=== PATIENT | female | born 1985 ===

== ENCOUNTER 2021-01-30 16:46 | Emergency (ER) | payer BC ==
--- NOTE | 2021-01-30 18:58 | EDM.PDOC ---
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, drove to the farm later this afternoon, when getting close to farm again felt "like my heart was going to flop," sob, trouble getting breath, lightheaded, did not stop driving, slowed down, felt like everything was going black but able to see other vehicles, felt better at farm altho not completely back to normal vss stable here, no sxs here has not been sleeping well, does have inc'd stress has had COVID vax x 2, 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 Denies: Wheezing, Pleuritic Chest Pain, Cough Cardiovascular: Reports: No Symptoms, Other (vague chest discomfort altho not actual CP) Endocrine: Reports: No Symptoms GI/Abdominal: Reports: No Symptoms. Denies: Nausea, Vomiting : Reports: No Symptoms Musculoskeletal: Reports: No Symptoms Skin: Reports: No Symptoms Neurological: Reports: No Symptoms Psychiatric: Reports: Anxiety Hematologic/Lymphatic: Reports: No Symptoms Immunologic: Reports: No Symptoms ED EXAM, GENERAL - Physical Exam Exam: See Below Exam Limited By: No Limitations General Appearance: Alert, WD/WN, No Apparent Distress, Other (mildly anxious, NAD, normal speech, good eye contact) Eye Exam: Bilateral Eye: EOMI, PERRL Ears: Normal External Exam, Hearing Grossly Normal Nose: Normal Inspection Throat/Mouth: Normal Inspection, Normal Lips, Normal Teeth, Normal Gums, Normal Oropharynx, Normal Voice, No Airway Compromise Head: Atraumatic, Normocephalic Neck: Normal Inspection, Supple, Non-Tender, Full Range of Motion. No: Lymphadenopathy (R), Lymphadenopathy (L) Respiratory/Chest: No Respiratory Distress, Lungs Clear, Normal Breath Sounds, Chest Non-Tender Cardiovascular: Regular Rate, Rhythm, No Edema, No Murmur GI/Abdominal: Normal Bowel Sounds, Soft, Non-Tender, No Organomegaly, No Distention Back Exam: Normal Inspection, Full Range of Motion. No: CVA Tenderness (R), CVA Tenderness (L) Extremities: Normal Inspection, Normal Range of Motion, Non-Tender, No Pedal Edema Neurological: Alert, Oriented, CN II-XII Intact, Normal Cognition, No Motor/Sensory Deficits Psychiatric: Normal Affect, Normal Mood Skin Exam: Warm, Dry, Intact, Normal Color, No Rash Lymphatic: No Adenopathy #1 Interpretation EKG Date: 01/30/21 Time: 19:07 Rhythm: NSR (completely normal, no acute findings) Course - Vital Signs Last Recorded V/S: Last Vital Signs Temp 36.8 C 01/30/21 16:47 Pulse 87 01/30/21 16:47 Resp 20 01/30/21 16:47 BP 118/70 01/30/21 16:47 Pulse Ox 98 01/30/21 16:47 - Orders/Labs/Meds Orders: Active Orders 24 hr Category Date Time Status EKG Documentation Completion [RC] ASDIRECTED Care 01/30/21 18:50 Ordered Chest 2V [CR] Stat Exams 01/30/21 18:49 Ordered EKG 12 Lead [EK] Routine Ther 01/30/21 18:49 Ordered Labs: Laboratory Tests 01/30/21 01/30/21 01/30/21 Range/Units 18:55 18:55 18:55 WBC 9.2 (3.0-10.3) x10-3/uL RBC 4.19 (3.60-5.20) x10(6)uL Hgb 12.9 (11.4-15.5) g/dL Hct 38.4 (34.2-48.2) % MCV 91.6 (76.7-100.5) fL MCH 30.8 (23.9-33.9) pg MCHC 33.6 (31.9-34.8) g/dL RDW 12.7 (12.3-16.5) % Plt Count 182 (151-488) x10(3)uL MPV 10.1 (7.1-12.4) fL Neut % (Auto) 76.1 (30.8-76.2) % Lymph % (Auto) 13.8 L (18.4-52.1) % [place] % (Auto) 7.2 (4.4-15.7) % Eos % (Auto) 2.3 (0.6-8.1) % Baso % (Auto) 0.6 (0.2-1.5) % Neut # (Auto) 7.0 H (1.5-6.3) x10-3/uL Lymph # (Auto) 1.3 (1.0-4.4) x10-3/uL [place] # (Auto) 0.7 (0.3-1.0) x10-3/uL Eos # (Auto) 0.2 (0.0-0.8) x10-3/uL Baso # (Auto) 0.1 (0.0-0.1) x10-3/uL D-Dimer, Quantitative 0.28 (0.0-0.59) mg/LFEU Sodium 143 (135-145) mmol/L Potassium 4.2 (3.5-5.3) mmol/L Chloride 107 (100-110) mmol/L Carbon Dioxide 27 (21-32) mmol/L BUN 19 H (7-18) mg/dL Creatinine 0.7 (0.55-1.02) mg/dL Est Cr Clr Drug Dosing TNP Estimated GFR (MDRD) > 60 (>60) BUN/Creatinine Ratio 27.1 H (9-20) Glucose 96 (80-116) mg/dL Calcium 8.8 (8.6-10.2) mg/dL Total Bilirubin 0.2 (0.1-1.3) mg/dL AST 12 (5-25) IU/L ALT 21 (12-36) U/L Alkaline Phosphatase 45 L (56-112) IU/L Troponin I (4.0-60.3) pg/mL C-Reactive Protein (0.5-0.9) mg/dL Total Protein 6.5 (6.0-8.0) g/dL Albumin 3.5 (3.5-5.2) g/dL Globulin 3.0 g/dL Albumin/Globulin Ratio 1.2 TSH, Ultra Sensitive (0.36-3.74) IU/mL Urine Color (YELLOW) Urine Appearance (CLEAR) Urine pH (5.0-6.5) Ur Specific [place] (1.010-1.025) Urine Protein (NEGATIVE) mg/dL Urine Glucose (UA) (NORMAL) mg/dL Urine Ketones (NEGATIVE) mg/dL Urine Occult Blood (NEGATIVE) Urine Nitrite (NEGATIVE) Urine Bilirubin (NEGATIVE) Urine Urobilinogen (NEGATIVE) mg/dL Ur Leukocyte Esterase (NEGATIVE) Urine RBC (0-5) Urine WBC (0-5) Ur Squamous Epith Cells (NS,R,O) Urine Bacteria (NS) 01/30/21 01/30/21 01/30/21 Range/Units 18:55 18:55 19:58 WBC (3.0-10.3) x10-3/uL RBC (3.60-5.20) x10(6)uL Hgb (11.4-15.5) g/dL Hct (34.2-48.2) % MCV (76.7-100.5) fL MCH (23.9-33.9) pg MCHC (31.9-34.8) g/dL RDW (12.3-16.5) % Plt Count (151-488) x10(3)uL MPV (7.1-12.4) fL Neut % (Auto) (30.8-76.2) % Lymph % (Auto) (18.4-52.1) % [place] % (Auto) (4.4-15.7) % Eos % (Auto) (0.6-8.1) % Baso % (Auto) (0.2-1.5) % Neut # (Auto) (1.5-6.3) x10-3/uL Lymph # (Auto) (1.0-4.4) x10-3/uL [place] # (Auto) (0.3-1.0) x10-3/uL Eos # (Auto) (0.0-0.8) x10-3/uL Baso # (Auto) (0.0-0.1) x10-3/uL D-Dimer, Quantitative (0.0-0.59) mg/LFEU Sodium (135-145) mmol/L Potassium (3.5-5.3) mmol/L Chloride (100-110) mmol/L Carbon Dioxide (21-32) mmol/L BUN (7-18) mg/dL Creatinine (0.55-1.02) mg/dL Est Cr Clr Drug Dosing Estimated GFR (MDRD) (>60) BUN/Creatinine Ratio (9-20) Glucose (80-116) mg/dL Calcium (8.6-10.2) mg/dL Total Bilirubin (0.1-1.3) mg/dL AST (5-25) IU/L ALT (12-36) U/L Alkaline Phosphatase (56-112) IU/L Troponin I < 4.0 L (4.0-60.3) pg/mL C-Reactive Protein < 0.2 L (0.5-0.9) mg/dL Total Protein (6.0-8.0) g/dL Albumin (3.5-5.2) g/dL Globulin g/dL Albumin/Globulin Ratio TSH, Ultra Sensitive 0.88 (0.36-3.74) IU/mL Urine Color Yellow (YELLOW) Urine Appearance Clear (CLEAR) Urine pH 6.0 (5.0-6.5) Ur Specific [place] 1.020 (1.010-1.025) Urine Protein Negative (NEGATIVE) mg/dL Urine Glucose (UA) Normal (NORMAL) mg/dL Urine Ketones Negative (NEGATIVE) mg/dL Urine Occult Blood Negative (NEGATIVE) Urine Nitrite Negative (NEGATIVE) Urine Bilirubin Negative (NEGATIVE) Urine Urobilinogen 1 H (NEGATIVE) mg/dL Ur Leukocyte Esterase Negative (NEGATIVE) Urine RBC 0-5 (0-5) Urine WBC 0-5 (0-5) Ur Squamous Epith Cells Few H (NS,R,O) Urine Bacteria Few H (NS) - Re-Assessments/Exams Free Text/Narrative Re-Assessment/Exam: 01/30/21 20:27 CxR 2v neg on prelim ED read w/u neg pt remained in SR on monitor pt reports she went to ED 4y ago with normal labs and a panic attack, she stopped drinking energy drinks no acute findings or symptoms concerning for acute illness no PCP, encouraged to establish care, mother concurred with instructions Departure - Departure Time of Disposition: 20:24 Disposition: Home, Self-Care 01 Condition: Good Clinical Impression: Shortness of breath, Palpitations - Discharge Information *PRESCRIPTION DRUG MONITORING PROGRAM REVIEWED*: Not Applicable *COPY OF PRESCRIPTION DRUG MONITORING REPORT IN PATIENT GERARD: Not Applicable Instructions: Shortness of Breath, Adult, Palpitations Referrals: PCP,None [Primary Care Provider] - Additional Instructions: Your tests are all within normal limits. Your physical exam and vital signs and heart monitor all have been normal. Establish care with a primary care provider for additional recommendations. See a PCP in one week. Maintain fluids. Get adequate rest. Eat 3 meals daily. In some situations, stress and fatigue and lack of sleep and worry can trigger a panic attack, which may have occurred. Sepsis Event Note (ED) - Focused Exam Vital Signs: Vital Signs Temp Pulse Resp BP Pulse Ox 01/30/21 16:47 36.8 C 87 20 118/70 98 - My Orders Last 24 Hours: My Active Orders 01/30/21 18:49 Chest 2V [CR] Stat EKG 12 Lead [EK] Routine 01/30/21 18:50 EKG Documentation Completion [RC] ASDIRECTED - Assessment/Plan Last 24 Hours: My Active Orders 01/30/21 18:49 Chest 2V [CR] Stat EKG 12 Lead [EK] Routine 01/30/21 18:50 EKG Documentation Completion [RC] ASDIRECTED
== END 2021-01-30 20:34 | disposition home or self-care (01) ==
LOC: FB.ED 16:46
DX: R06.02 Shortness of breath (principal); R00.2 Palpitations
CPT/HCPCS: 36415; 71046; 80053; 81001; 84443; 84484; 85025; 85379; 86140; 93005; 99285-25